=== PATIENT | female | born 1970 | race Hispanic/Latino ===

== ENCOUNTER → 2020-06-16 | Outpatient (CLI) | payer OTHER ==
[~2020-06-16] MED LIST: ACET1TAB25 PO; BACL10TA PO; HYDR-3421 PO
== END | disposition home or self-care (01) ==
LOC: SHCH 13:12
PROVIDERS: ATTEND Internal Medicine Cardiovascular Disease
DX: R00.2 Palpitations (principal)
CPT/HCPCS: 93306; 93356

== ENCOUNTER 2020-06-29 15:01 | Emergency (ER) | payer OTHER ==
[2020-06-29 15:36] LABS: BASOPHILS % (AUTO) 0.6 % (0.0-5.0); EOSINOPHILS % (AUTO) 3.9 % (0.0-8.0); HEMATOCRIT 43.1 % (36-48); LYMPHOCYTES % (AUTO) 42.4 % (21.0-51.0); MEAN CORPUSCULAR HGB CONC 33.6 g/dL (32.0-36.0); MEAN CORPUSCULAR VOLUME 83.2 fL (79-99); MONOCYTES % (AUTO) 7.3 % (3.0-13.0); NEUTROPHILS % (AUTO) 45.5 % (40.0-77.0); PLATELET COUNT (AUTO) 268 K/uL (130-400); RED BLOOD CELL COUNT(AUTO) 5.18 MIL/uL (4.00-5.50); RED CELL DISTRIBUTION WIDTH 12.4 % (11.0-15.5)
[2020-06-29 15:51] LABS: INR 0.97 (0.85-1.15); PROTHROMBIN TIME 10.4 SEC (9.6-11.6)
[2020-06-29 15:53] LABS: PARTIAL THROMBOPLASTIN TIME 25.9 SEC (26.3-35.5)
[2020-06-29 15:54] LABS: CREATININE 0.9 mg/dL (0.5-1.5); POTASSIUM 3.8 mmol/L (3.5-5.1)
[2020-06-29] MEDS ORDERED: ASPIRIN 325 MG TABLET ONE (15:55)
[2020-06-29 15:58] LABS: ALBUMIN 3.1 g/dL (3.5-5.0); BILIRUBIN,TOTAL 0.1 mg/dL (0.2-1.0); TOTAL PROTEIN, SERUM 7.8 g/dL (6.0-8.3)
[2020-06-29] MEDS ORDERED: ACETAMINOPHEN 325 MG TAB ONE (16:00)
[2020-06-29] MEDS ORDERED: IOHEXOL-350 75 ML VIAL IV ONE (16:44)
[2020-06-29 18:06] LABS: APPEARANCE,URINE Clear (CLEAR); BILIRUBIN,URINE Negative (NEGATIVE); COLOR,URINE Yellow (YELLOW); GLUCOSE, URINE (UA) Negative (NEGATIVE); KETONES,URINE Negative (NEGATIVE); LEUKOCYTE ESTERASE ,URINE Negative (NEGATIVE); NITRATE,URINE Negative (NEGATIVE); OCCULT BLOOD,URINE Negative (NEGATIVE); PROTEIN,URINE Negative (NEGATIVE)
[2020-07-01] MEDS ORDERED: ACET1TAB25 PO ×2 (09:29)
[2020-07-01] MEDS ORDERED: HYDR-3421 PO ×2 (09:30)
[2020-07-01] MEDS ORDERED: BACL10TA PO ×2 (09:30)
== END 2020-06-29 19:38 | disposition home or self-care (01) ==
LOC: EDH 15:01
DX: R07.89 Other chest pain (principal); R06.02 Shortness of breath; Z90.710 Acquired absence of both cervix and uterus; Z91.040 Latex allergy status; Z88.1 Allergy status to other antibiotic agents; Z88.6 Allergy status to analgesic agent; Z88.0 Allergy status to penicillin; Z88.8 Allergy status to other drugs, medicaments and biological substances; Z72.0 Tobacco use; Z98.890 Other specified postprocedural states
CPT/HCPCS: 36415; 71045; 71275; 80053; 81003; 82550; 84145; 84484 ×2; 85025; 85610; 85730; 93005; 99285; Q9967

== ENCOUNTER 2020-06-30 17:48 | Observation (INO) | payer OTHER ==
[~2020-06-30] VITALS: Ht 165.1 cm; Wt 148.3 kg
[2020-06-30 19:23] LABS: BASOPHILS % (AUTO) 0.5 % (0.0-5.0); EOSINOPHILS % (AUTO) 3.8 % (0.0-8.0); HEMATOCRIT 41.9 % (36-48); LYMPHOCYTES % (AUTO) 41.5 % (21.0-51.0); MEAN CORPUSCULAR HEMOGLOBIN 28.1 pg (27.0-33.0); MEAN CORPUSCULAR HGB CONC 33.4 g/dL (32.0-36.0); MONOCYTES % (AUTO) 7.1 % (3.0-13.0); NEUTROPHILS % (AUTO) 46.9 % (40.0-77.0); PLATELET COUNT (AUTO) 259 K/uL (130-400); POTASSIUM 3.7 mmol/L (3.5-5.1); RED BLOOD CELL COUNT(AUTO) 4.99 MIL/uL (4.00-5.50); RED CELL DISTRIBUTION WIDTH 12.4 % (11.0-15.5); WHITE BLOOD COUNT (AUTO) 8.6 K/uL (4.8-10.8)
[2020-06-30 19:31] LABS: INR 1.02 (0.85-1.15); PROTHROMBIN TIME 10.9 SEC (9.6-11.6)
[2020-06-30 19:32] LABS: PARTIAL THROMBOPLASTIN TIME 26.5 SEC (26.3-35.5)
[2020-06-30 19:39] LABS: CREATININE 0.8 mg/dL (0.5-1.5)
[2020-06-30 19:44] LABS: ALBUMIN 3.1 g/dL (3.5-5.0); BILIRUBIN,TOTAL 0.1 mg/dL (0.2-1.0); TOTAL PROTEIN, SERUM 7.1 g/dL (6.0-8.3)
[2020-06-30 20:30] LABS: AMPHET/METH SCREEN,URINE NEGATIVE (NEGATIVE); BARBITURATE SCREEN, URINE NEGATIVE (NEGATIVE); BENZODIAZEPINES SCREEN,URINE NEGATIVE (NEGATIVE); CANNABINOID SCREEN,URINE NEGATIVE (NEGATIVE); COCAINE SCREEN,URINE NEGATIVE (NEGATIVE); OPIATE SCREEN,URINE NEGATIVE (NEGATIVE); PHENCYCLIDINE SCREEN,URINE NEGATIVE (NEGATIVE)
[2020-06-30] MEDS ORDERED: MORPHINE SULFATE 2 MG/ML 1ML SYG IV PRN (20:45)
[2020-06-30] MEDS ORDERED: ACETAMINOPHEN 325 MG TAB PO PRN ×2 (20:45)
[2020-06-30] MEDS ORDERED: ONDANSETRON HCL 4 MG/2 ML VIAL IV PRN (20:45)
[2020-06-30] MEDS ORDERED: NITROGLYCERIN 1GM/1 INCH PACKET TD SCH (20:45)
[2020-06-30] MEDS ORDERED: FAMOTIDINE/PF 20 MG/2 ML VIAL IV SCH ×2 (21:00)
[2020-06-30] MEDS ORDERED: METOPROLOL TARTRATE 25 MG TAB PO SCH (21:00)
[2020-06-30 21:15] LABS: HEMOGLOBIN A1C 7.5 % (4.0-6.0)
[2020-06-30] MEDS ORDERED: PHARMACY COMMUNICATION MISC SCH (21:30)
[2020-06-30] MEDS ORDERED: METOPROLOL TARTRATE 25 MG TAB ONE (21:37)
[2020-06-30] MEDS ORDERED: FAMOTIDINE/PF 20 MG/2 ML VIAL IV ONE (21:38)
[2020-06-30 21:43] LABS: CRP QUANTITATIVE 16.3 mg/L (0.00-9.0); THYROID STIMULATING HORMONE 1.91 uIU/mL (0.36-3.74)
[2020-07-01 03:46] LABS: CREATINE KINASE, TOTAL 65 U/L (21-232); MYOGLOBIN 84 ng/mL (10-92); TROPONIN I < 0.04 ng/mL (0.00-0.06)
[2020-07-01] MEDS ORDERED: ASPIRIN 325 MG TABLET PO SCH (09:00)
[2020-07-01] MEDS ORDERED: ENOXAPARIN SODIUM 40 MG/0.4 ML SYRINGE SQ SCH (09:00)
[2020-07-01] MEDS ORDERED: ACET1TAB25 PO (09:29)
[2020-07-01] MEDS ORDERED: HYDR-3421 PO (09:30)
[2020-07-01] MEDS ORDERED: BACL10TA PO (09:30)
== END 2020-07-01 09:59 | disposition home or self-care (01) ==
LOC: EDH 17:48 → EDHIP 20:16
PROVIDERS: ADMIT Internal Medicine; ATTEND Internal Medicine
DX: I31.9 Disease of pericardium, unspecified (principal); Z20.828 Contact with and (suspected) exposure to other viral communicable diseases; E66.01 Morbid (severe) obesity due to excess calories; E11.9 Type 2 diabetes mellitus without complications; I10 Essential (primary) hypertension; F17.210 Nicotine dependence, cigarettes, uncomplicated; Z85.42 Personal history of malignant neoplasm of other parts of uterus; Z90.711 Acquired absence of uterus with remaining cervical stump; Z79.899 Other long term (current) drug therapy; Z88.0 Allergy status to penicillin; Z88.5 Allergy status to narcotic agent; Z88.1 Allergy status to other antibiotic agents; Z88.6 Allergy status to analgesic agent; Z91.040 Latex allergy status; Z68.43 Body mass index [BMI] 50.0-59.9, adult
CPT/HCPCS: 36415 ×2; 80053; 80305; 82550 ×2; 83036; 83874 ×2; 84443; 84484 ×2; 85025; 85610; 85651; 85730; 86140; 87426; 93005 ×2; 99284; G0378 ×13; J3490; U0003

== ENCOUNTER 2020-08-07 11:03 | Emergency (ER) | payer OTHER ==
[2020-08-07] MEDS ORDERED: DiphenhydrAMINE HCL 50 MG/ML VIAL ONE (11:46)
[2020-08-07] MEDS ORDERED: ACETAMINOPHEN 325 MG TAB ONE (11:46)
[2020-08-07] MEDS ORDERED: PROCHLORPERAZINE 10MG/2ML INJ ONE (11:47)
[2020-08-07 11:49] LABS: BASOPHILS % (AUTO) 0.5 % (0.0-5.0); EOSINOPHILS % (AUTO) 2.3 % (0.0-8.0); HEMATOCRIT 44.3 % (36-48); LYMPHOCYTES % (AUTO) 30.8 % (21.0-51.0); MEAN CORPUSCULAR HEMOGLOBIN 27.9 pg (27.0-33.0); MEAN CORPUSCULAR HGB CONC 33.4 g/dL (32.0-36.0); MEAN CORPUSCULAR VOLUME 83.4 fL (79-99); MONOCYTES % (AUTO) 8.1 % (3.0-13.0); NEUTROPHILS % (AUTO) 57.8 % (40.0-77.0); PLATELET COUNT (AUTO) 255 K/uL (130-400); RED BLOOD CELL COUNT(AUTO) 5.31 MIL/uL (4.00-5.50); RED CELL DISTRIBUTION WIDTH 12.3 % (11.0-15.5); WHITE BLOOD COUNT (AUTO) 10.8 K/uL (4.8-10.8)
[2020-08-07 11:58] LABS: CREATININE 0.9 mg/dL (0.5-1.5); POTASSIUM 4.2 mmol/L (3.5-5.1)
[2020-08-07 12:17] LABS: BILIRUBIN,TOTAL 0.3 mg/dL (0.2-1.0)
[2020-08-07 12:18] LABS: ALBUMIN 3.4 g/dL (3.5-5.0); TOTAL PROTEIN, SERUM 8.1 g/dL (6.0-8.3)
[2020-08-07] MEDS ORDERED: 0.9%NACL 1000ML 1,000 ML IV ONE (14:57)
[2020-08-07] MEDS ORDERED: TAMSULOSIN HCL 0.4 MG CAP.ER.24H ONE (14:58)
== END 2020-08-07 16:16 | disposition home or self-care (01) ==
LOC: EDH 11:03
DX: N20.9 Urinary calculus, unspecified (principal); E66.01 Morbid (severe) obesity due to excess calories; Z88.0 Allergy status to penicillin; Z88.1 Allergy status to other antibiotic agents; Z88.6 Allergy status to analgesic agent; Z91.041 Radiographic dye allergy status; Z72.0 Tobacco use; Z68.43 Body mass index [BMI] 50.0-59.9, adult
CPT/HCPCS: 36415; 71250; 74176; 80053; 84484; 85025; 96361; 96374; 96375; 99284; J0780; J1200; J7030